=== PATIENT | female | born 1945 | race Caucasian/White ===

== ENCOUNTER → 2018-05-20 08:54 | Outpatient (CLI) | payer MEDICARE, SELFPAY ==
--- NOTE | 2018-05-20 09:13 | RAD_ITS ---
PROCEDURE: Fluoroscopic guided Hip Injection DATE: May 20, 2018. INDICATION: Female, 73 years old. Chronic left hip pain. PHYSICIAN: Ricardo Ware M.D. MEDICATIONS: 6 mg of betamethasone and 3 cc of 1% lidocaine. 2% lidocaine administered subcutaneously for local anesthesia. ACCESS SITE: Left hip. NEEDLE: 22-gauge spinal needle. FLUOROSCOPY TIME (if supplied): (28 seconds) minutes/seconds. Single image was obtained. FINDINGS: The risks, benefits, and alternatives to the procedure were explained to the patient. The specific risks of bleeding, infection, and neurovascular injury were detailed and accepted. Witnessed informed consent was obtained. A 22-gauge spinal needle was positioned under radiographic fluoroscopic localization. Approximately 2 cc of Isovue-300 instilled for localization purposes. Medication was then injected. The patient tolerated the procedure well without any immediate complications. The patient was placed supine with head elevated and returned to the floor in stable condition. RAD/Inj/Asp Yuniel Jt Should/Hip/Knee IMPRESSION: 1. Successful fluoroscopic guided hip injection. Electronically Signed: Ricardo Ware MD at 10:20 EDT Tel [phone], Service support ,
== END ==
PROVIDERS: Family Provider Family Medicine; PCP Family Medicine; Referring Provider Specialist; Visit Provider Specialist
DX: M16.12 Unilateral primary osteoarthritis, left hip (principal)
CPT/HCPCS: 20610; 77002; Q9965; J0702

== ENCOUNTER 2020-08-01 11:11 | Day surgery (SDC) | payer MEDICARE, SELFPAY ==
[2020-07-06 15:54] VITALS: BMI 31.0
--- NOTE | 2020-08-01 09:56 | PCM.HP.BLA ---
History and Physical Date of Admission: 08/01/20 HISTORY OF PRESENT ILLNESS Patient is a 75 year old female who presents for evaluation of a soft tissue mass of her left lower lip. She first noticed it in March. She denies any trauma to the area. She states that she now accidently bites it and then it will start hurting. She denies infection. She presents today for further evaluation and treatment. PAST MEDICAL HISTORY Mass of lip Frequent headaches GERD (gastroesophageal reflux disease) Heart murmur High cholesterol High triglycerides Cataract PAST SURGICAL HISTORY cataract surgery right knee surgery ALLERGIES codeine tramadol MEDICATIONS Fenofibrate [Tricor] Metoclopramide [Reglan] Omeprazole [Prilosec] Sumatriptan Succinate calcium carbonate-vitamin D3 cyanocobalamin (vitamin B-12) meloxicam ropinirole FAMILY HISTORY Other - Breast cancer, Heart disease, Hypertension, Kidney disease, Liver disease SOCIAL HISTORY Smoking Status: Former smoker alcohol intake: current substance use type: does not use REVIEW OF SYSTEMS General - Denies fever, fatigue, and weight loss. She is a former smoker, she quit when her children where born. Eyes - Denies glaucoma. She has a history of cataracts. ENT - Denies nasal congestion and sore throat. She has a soft tissue mass on her left lower lip that she first noticed in March. She states that she accidentally bites it and it is bothersome. Endocrine - Denies excessive thirst and urination. Skin - Denies suspicious lesions and skin cancer. Denies any personal or family history of skin cancer. Musculoskeletal - Complains of joint pain, joint stiffness. She denies weakness of muscles and joints, back pain, and arthritis. She had her right knee replaced recently and has injections placed in left knee. Neuro - Complains of migraines and headaches, she takes Sumatriptan for these. Cardiovascular - Denies fatigue, and shortness of breath with exertion. She sees a country printer apprentice next week for stress test and ultrasound because she sometimes has episodes of chest discomfort. History of high cholesterol and triglycerides. Psych - Denies anxiety and depression. Respiratory - Denies chronic cough and shortness of breath. Patient is a former smoker. Gastrointestinal - Denies nausea, vomiting, diarrhea, and constipation. History of GERD. Hematologic - Denies abnormal bruising and bleeding. Genitourinary - Denies hematuria but complains of urinary frequency. PHYSICAL EXAMINATION General - Alert and oriented. HEENT - PERRL. EOMI. Throat is clear. On the left lower lip near the midline is a soft tissue mass. It measures 4 mm. It is 2 cm from the left commissure. The length of the lower lip is 6.5 cm. Neck - Supple and non-tender. No cervical adenopathy. No suspicious lesions noted. Lungs- Clear to auscultation. Heart - Regular rate and rhythm. Abdomen - Soft and non distended. Extremities - FROM. No axillary adenopathy. Radial pulses are palpable. No suspicious lesions noted. Neuro - CN II-XII grossly intact. Psych - Normal mood and affect. ASSESSMENT 1. 4 mm soft tissue mass of left lower lip. 2. Former smoker. PLAN Recommend excision of this soft tissue mass left lower lip and send it to Pathology for analysis to rule out carcinoma. Reconstruction will be with lip flaps. If carcinoma is present, then further excision would be done with lip flaps reconstruction. Patient was informed of the risks and complications of the procedure including alternatives to surgery. These were discussed with the patient personally. Patient voices understanding and wishes to proceed. Some of the risks and complications were included in a form from the [employer]. Surgery will be done under local anesthesia and IV sedation on an outpatient basis. We discussed the current risks associated with COVID-19. While it is understood that there is a community spread of COVID-19, the risk of maureen COVID-19 while at [facility] ([facility]) is very low; however, the risk cannot be completely mitigated because of the community spread of the disease. We discussed in detail the risk of exposure to and/or potential harm posed by the COVID-19 virus with having a surgery/procedure at this time versus the risk of delaying the surgery/procedure. It is not possible to know either the risk of delaying the surgery or procedure or chance of getting an infection with perfect accuracy, but a joint decision was made to proceed at this time with the scheduled surgery/procedure as indicated on the consent form. Patient was notified that we will need to comply with any screening or testing [facility] wishes to perform or that surgery may be delayed for any positive results. Discussed with the patient that I was tested for COVID-19 on 02/25/20 which was negative and on 03/10/20 which was negative and on 03/24/20 which was negative and on 04/07/20 which was negative and on 04/21/20 which was negative and on 05/12/20 which was negative and on 06/02/20 which was negative and on 07/07/20 which was negative and on 07/28/20 which was negative. My testing regimen at this time is to be COVID-19 tested every 2 weeks or so. Procedure Criteria Procedure Type: Elective COVID Risk Discussion: The surgeon/proceduralist and patient have discussed in detail the risk of exposure to and/or potential harm posed by the COVID-19 virus with having a surgery/procedure at this time versus the risk of delaying the surgery/procedure. It is not possible to know either the risk of delaying the surgery or procedure or chance of getting an infection with perfect accuracy, but a joint decision was made between the patient and the surgeon/proceduralist to proceed at this time with the scheduled surgery/procedure as indicated on the consent form.
[2020-08-01 11:50] VITALS: BP 147/83; PULSE 57; RESP 16; TEMP 36.9; O2SAT 95; BMI 30.5
[2020-08-01] MEDS: Lactated Ringers 1,000 ML 100 ML IV (11:55)
[2020-08-01] MEDS: Lidocaine 1% /Epi 1:100 (20ml) 20 ML Vial (13:20)
[2020-08-01] MEDS: Mupirocin Ointment 22gm Tube 1 APPLIC (13:35)
--- NOTE | 2020-08-01 14:04 | PCM.OPRPT ---
Report of Operation Date of Procedure: 08/01/20 Pre-Operative Diagnosis: 1. 4 mm soft tissue mass of left lower lip. 2. Former smoker. Post-Operative Diagnosis: Same. Surgery/Procedure Performed:: Excision 4 mm soft tissue mass of left lower lip with medial and lateral lip advancement flaps reconstruction. Description of Surgical Findings:: Patient is a 75 year old female who presents for evaluation of a soft tissue mass of her left lower lip. She first noticed it in March. She denies any trauma to the area. She states that she now accidently bites it and then it will start hurting. She denies infection. Patient was informed of the risks and complications of the procedure including alternatives to surgery. These were discussed with the patient personally. Patient voices understanding and wishes to proceed. Some of the risks and complications were included in a form from the [employer]. 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 Drains: None. Estimated Blood Loss (mL): 10 ml. Description of Procedure: Patient was taken to OR in supine position and was placed under general anesthesia. The lips and lower face were prepped and draped in the usual fashion. SCD's were placed for DVT prophylaxis. Perioperative antibiotics were given intravenously. For the procedure, I wore an N95 mask and wore proper eyewear protection. Using xylocaine with epinephrine, an intraoral mental nerve block was infiltrated for postoperative pain relief. 5-0 Monocryl sutures were placed on the lower lip as traction sutures. I made an incision around the soft tissue mass. The mass was adherent to the underlying muscle which was excised. A suture was marked at the 12 oclock position for pathology orientation. The mass was sent to Pathology for analysis to rule out carcinoma. The mass clinically looked benign. The size of the defect was 1 x 1 cm. I designed medial and lateral lip flaps at the level of the naomy border and the dry lip with the wet mucosa. Incisions were made and the lip flaps were elevated into the underlying muscle. The size of the medial and lateral lip flaps were 1 x 1 cm each. The medial and lateral lip flaps were easily advanced into the defect with minimal tension and minimal distortion. Hemostasis was obtained with electrocautery. The lip flaps were then approximated in a multiple layered fashion by first approximating the muscle with 5-0 Monocryl figure of eight interrupted sutures. The naomy was approximated with 4-0 Chromic simple interrupted sutures. The intraoral wet mucosa was approximated with 4-0 Chromic simple interrupted sutures. For the naomy border, I used 5-0 Monocryl interrupted sutures for the deep dermis and subcutaneous tissue. The skin was approximated to the naomy with 6-0 Prolene simple interrupted sutures. Good lip contour was noted. No vascular compromise was noted on the lip flaps. Antibiotic ointment was applied to the suture lines. The size of the defect and the size of the lip flaps needed to close the defect was 3 cm2. Patient tolerated the procedure well and was sent to PACU in satisfactory condition. Patient will be sent home on antibiotics and pain medication. She will also use mouthwash after eating. Patient will followup in a week for a wound check and for discussion of the pathology report and for removal of the sutures. Grafts/Implants Used: None. - Complications None. - Admit VTE Documentation VTE Present on Admission: No VTE Mechan Device Prophylaxis: SCD's VTE Pharm Prophylaxis ordered?: No Surgery Charges CPT - 92102 ICD-10 - K13.0, Z87.891 39680 K13.0, Z87.891
[2020-08-01 14:15] VITALS: BP 147/77; BP 147/83; PULSE 64; RESP 16; TEMP 36.1; O2SAT 93
--- NOTE | 2020-08-01 14:16 | PCM.DC ---
You will use the following diet at home:: No restrictions Discharge Activity: May not drive while taking narcotic pain medications., May Shower - in two days., - - keep head elevated. no heavy lifting. May shower in (days): 2 May resume sexual activity in: No Restrictions Ice area for (Minutes): 5 - as needed for facial swelling. Weight Bearing Status: Weight bearing as tolerated Lifting Restrictions: 10 lbs. Keep extremity elevated above heart level: - - elevate head. Call your doctor if your incision/area has: Continuous Slow Oozing, Sudden Increased Bleeding, Increased Pain/ Swelling, Increased Redness, Foul Smelling Discharge, Swelling at the incision site Call your doctor if you observe: Fever of 101 or Higher, Coldness, Increased Pain, Shortness of breath, Chest pain, Calf discomfort, Uncontrolled pain Suture Line Care: - - apply antibiotic ointment to suture line daily. Cleanse incision/area with: - - may get incisions wet in the shower in two days. Additional Dressing/Incision Instructions:: Use mouthwash after eating. Allergies/Adverse Reactions: Allergies codeine Adverse Reaction (Verified 08/01/20 11:47) Vomiting tramadol Adverse Reaction (Verified 08/01/20 11:47) severe stomach cramps Medications to take at Discharge Fenofibrate [Tricor] 145 mg PO DAILY 10/05/15 Metoclopramide [Reglan] 5 mg PO .4 TIMES DAILY 10/05/15 Omeprazole [Prilosec] 40 mg PO DAILY 10/05/15 Sumatriptan Succinate 50 mg PO PRN PRN 10/05/15 calcium carbonate 600 mg (1,500 mg)-vitamin D3 400 unit tablet 1 tab PO BID 06/28/20 cyanocobalamin (vitamin B-12) 2,500 mcg sublingual tablet 2,500 mcg SUBLINGUAL DAILY 06/28/20 meloxicam 15 mg tablet 15 mg PO DAILY 06/28/20 ropinirole 1 mg tablet 1 mg PO QHS 06/28/20 Metoprolol Tartrate [Lopressor (beta jaime)] 25 mg PO BID 07/25/20 Clindamycin HCl [Cleocin] 300 mg PO TID #12 cap 08/01/20 Lactobacillus Acidophilus/Fos [Acidophilus Probiotic Tablet] 1 ea PO BID #20 tab 08/01/20 Oxycodone HCl/Acetaminophen [Percocet 5/325] 1 tablet PO Q4H PRN PRN 5 Days #20 tablet 08/01/20 The following prescriptions were given: Lactobacillus Acidophilus/Fos [Acidophilus Probiotic Tablet] 1 ea PO BID #20 tab Transmission Status: Pending to [facility] Clindamycin HCl [Cleocin] 300 mg PO TID #12 cap Transmission Status: Pending to [facility] Oxycodone HCl/Acetaminophen [Percocet 5/325] 1 tablet PO Q4H PRN PRN 5 Days #20 tablet PRN Reason: Pain Score 6-10 Transmission Status: Sent to [facility] Primary Care Physician: Lucius Aly DO [Primary Care Provider] - Test Results: Test results from this visit will be discussed in further detail at your follow-up appointment, if applicable. Please Follow Up With: Michael Gray MD When: one week. call [phone] for appt. Proposed Discharge Date: 08/01/20
[2020-08-01 14:30] VITALS: BP 137/70; BP 147/83; PULSE 59; RESP 16; O2SAT 94
[2020-08-01 14:45] VITALS: BP 139/74; BP 147/83; PULSE 54; RESP 16; TEMP 36.2; O2SAT 97
[2020-08-01 15:41] VITALS: BP 147/83; BP 149/88; PULSE 66; RESP 16; TEMP 36.2; O2SAT 93
--- NOTE | 2020-08-01 15:55 | LES_PTH ---
PATIENT: MILLER FELIX LOC: [facility] – [place] U#:[id number] AGE/SX: 75/F ROOM: RE08/01/[address]: Dr. Michael Gray MD : 1945 BED: DIS: 08/01/2020 SPEC #: [id number] RECD: 08/01/20 15:55 STATUS: JB REQ #: [id number] RENEE: 08/01/20 15:[address]: Michael Gray DEPT: SURGICAL PATHOLOGY RECD BY: April Luz ENTERED: 08/02/20 08:10 SP TYPE: Lesion OTHR DR: Dr. Lucius Aly, DO Tissues: Skin of lip, NOS Procedures: Surgery Specimen Level III HEADER OPERATION: Excision soft tissue mass lower lip; lip flap reconstruction PRE-OP DIAGNOSIS: 4 mm soft tissue mass left lower lip TISSUE SUBMITTED: Soft tissue mass left lower lip, suture at 12 o'clock MICROSCOPIC DIAGNOSIS Soft tissue mass of left lower lip: Epidermal inclusion cyst. AM:beverly 08/03/20 MICROSCOPIC DESCRIPTION Slides are reviewed. GROSS DESCRIPTION Received in fixative is one container labeled with the patient's name and designated soft tissue mass left lower lip, suture at 12 o'clock. The specimen consists of one heck fragment of skin that measures 0.7 x 0.7 x 0.2 cm. A suture is present at one edge. This edge is inked in black ink. The remainder of the specimen is inked in yellow ink. The specimen is bisected and totally submitted in one cassette. / AM:beverly 08/02/20 TC:5 CPT: 31516
== END 2020-08-01 15:52 | disposition home or self-care (01) ==
LOC: SDC 11:12 → AC 11:28
PROVIDERS: PCP Family Medicine; Referring Provider Surgery; Visit Provider Surgery
PROC: (CPT 40525; principal; 2020-08-01 12:45)
DX: L72.0 Epidermal cyst (principal); I10 Essential (primary) hypertension; R01.1 Cardiac murmur, unspecified; E78.00 Pure hypercholesterolemia, unspecified; M79.7 Fibromyalgia; K21.9 Gastro-esophageal reflux disease without esophagitis; G25.81 Restless legs syndrome; Z79.1 Long term (current) use of non-steroidal anti-inflammatories (NSAID); Z79.899 Other long term (current) drug therapy; Z87.891 Personal history of nicotine dependence; Z20.828 Contact with and (suspected) exposure to other viral communicable diseases
CPT/HCPCS: 40525; 87426; 88304; 88305; C9803; J7120; J2405

== ENCOUNTER 2025-08-09 08:27 | Day surgery (SDC) | payer MEDICARE, SELFPAY ==
--- NOTE | 2025-08-06 15:44 | PAT.ANE_ITS ---
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 When Was Last Pacemaker Check QUESTION #4 FULL TEXT: You/Your Family Experience fever (hyperthermia) with Anesthesia Last Oral Intake Last Oral intake: Last Oral Intake NPO since Meds taken in AM with sips of water? Meds patient instructed to take am of surgery PONV PONV - boulevard glassware replacer: PONV - boulevard glassware replacer Female Yes 08/04/25 14:18 HX of Motion Sickness No 08/04/25 14:18 HX of N/V After Surgery No 08/04/25 14:18 Non-Smoker Yes 08/04/25 14:18 Duration of Surgery greater No 08/04/25 14:18 than 60 minutes Number of Risk Factors 2 08/04/25 14:18 PONV Score Moderate Risk 08/04/25 14:18 Respiratory Assessment Respiratory Assessment - boulevard glassware replacer: Respiratory Tract Infection Hx - boulevard glassware replacer Hx Respiratory Tract Infection No 08/04/25 14:18 STOP Sleep Apnea STOP Sleep Apnea - boulevard glassware replacer: STOP Sleep Apnea - boulevard glassware replacer Hx Hypertension Yes: CONTROLLED WITH MED 08/04/25 14:18 Hx Sleep Apnea No 08/04/25 14:18 CPAP BIPAP Do you snore loudly (louder No 08/04/25 14:18 than talking or can be heard Do you often feel tired/ No 08/04/25 14:18 fatigued/ sleepy during daytime? Has anyone observed you stop No 08/04/25 14:18 breathing during sleep? STOP Results Negative 08/04/25 14:18 QUESTION #5 FULL TEXT : Do you snore loudly (louder than talking or can be heard through closed doors)? 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: Tobacco Use History - boulevard glassware replacer Tobacco Use Smoking Status Former smoker 08/04/25 14:18 Hx Tobacco Use No 08/04/25 14:18 Years Smoking Packs Smoked per Day Smoking Cessation Date was No - quit smoking greater 08/04/25 14:18 within the last 15 years than 15 years ago Hx Smoking Cessation Date 08/26/69 08/04/25 14:18 Hx Smoking Cessation Counseling Hematologic Medial History Hematologic Hx - boulevard glassware replacer: Hematologic Medical Hx - rn documentation Hx of Blood Transfusion No 08/04/25 14:18 Hx of Transfusion in last 3 No 08/04/25 14:18 Months Date of Last Transfusion (if within last 3 months) Ever experience any problems No 08/04/25 14:18 with transfusion(s)? Specify any problems Hx of Preganancy in last 3 N/A 08/04/25 14:18 Months Nurse Filling Out Transfusion NBUCHER 08/04/25 14:18 & Questions: Date: 08/04/25 08/04/25 14:18 Time: 14:21 08/04/25 14:18 Patient unable to answer at this time (ie. confused, unrespo /Reproduction History /Reproductive History - boulevard glassware replacer: /Reproductive Hx- boulevard glassware replacer Hx Now No 08/04/25 14:18 Gestational Age (in weeks): EDC: Hx Hx Para Hx Section SAB No 08/04/25 14:18 Does the father of the baby or his family experience fever w Father of the baby Malignant Hypertension history comment [facility] Medical History (Updated 08/04/25 @ 14:27 by Deanna Chaudhari) Wears glasses Wears dentures Post-menopausal Arthritis Restless legs Migraine headache History of echocardiogram History of stress test Cardiology follow-up encounter Epidermal inclusion cyst Mass of lip Vision problems GERD (gastroesophageal reflux disease) Heart murmur High triglycerides High cholesterol Frequent headaches Cataract Home Medications ?Medication ?Instructions ?Recorded ?Last Taken ?Type metoclopramide HCl 10 mg tablet 5 mg PO Q6H PRN nausea and vomiting 10/05/15 04/19/16 11:00 History 5 MG omeprazole 40 mg capsule,delayed 40 mg PO DAILY 08/01/20 History release calcium 600 mg (as 1 tab PO BID 06/28/20 Unknow n History carbonate)-vitamin D3 10 mcg (400 unit) tablet cyanocobalamin (vitamin B-12) 2,500 mcg sublingual ROSEY LY 06/28/20 Unknown History 2,500 mcg sublingual tablet (Vitamin B-12) metoprolol tartrate 25 mg tablet 25 mg PO BID 07/25/20 08/01/20 History Lactobacillus acidophilus 500 1 ea PO BID #20 tabs 03/14 Unknown Rx million cell-fructooligosac 50 mg tablet acetaminophen 500 mg tablet 500 mg PO Q6H PRN pain 06/19 Unknown History (Acetaminophen Extra Strength) alendronate 70 mg tablet 70 mg PO QWEEK 08/04/25 Unkn own History gabapentin 300 mg capsule 300 mg PO TID 08/04/25 Unkno wn History niacin 500 mg tablet,extended 500 mg PO BID 08/04/25 U nknown History release (Endur-Acin) omega 6-ouo-egw-fish oil 1,200 mg 1,200 cap PO DAILY 1 10/05/24 Unknown History (144 mg-216 mg) capsule (Fish Oil) pravastatin 20 mg tablet 20 mg PO DAILY 08/04/25 Unkn own History rimegepant 75 mg disintegrating 75 mg PO DAILY PRN zoila brennen 08/04/25 Unknown History tablet (Nurtec ODT) headache Allergy/AdvReac Type Severity Reaction Status Date / Time codeine AdvReac Vomiting Verified 08/04/25 14:12 tramadol AdvReac severe Verified 08/04/25 14:12 stomach cramps Family History Other Breast cancer Heart disease Hypertension Kidney disease Liver disease Surgical History Status post insertion of spinal cord stimulator History of repair of left hip joint History of excision of mass History of cataract surgery History of right knee surgery Social History (Updated 09/01/20 @ 13:16 by Kemi Cárdenas NETWORK COORDINATOR, NETWORK COORDINATOR-C) Smoking Status: Former smoker alcohol intake: current substance use type: does not use additional social history: DOES TAKE ASPIRIN DOES TAKE TYLENOL NEEDED DOES NOT TAKE IBUPROFEN Audit: Pertinent Findings Pertinent Findings EKG Perinent findings: 01/06/2024. Sinus rhythm. Probable LVH. Echo (EF%) pertinent findings: 08/03/2024. EF 50 to 60%. Pulmonary pressure 32. Consult pertinent findings: Cardiology note 07/26/2025. Silver Mitchell. LVH. Stable. Continue current medications. Mitral valve prolapse. Trivial MR. No test ordered. Recommendation Anesthesia Recommendation Anesthesia recommendation: OPTIMIZED for anesthesia
[2025-08-09] VITALS (8 sets, daily range): BP systolic 120–133; BP diastolic 73–95; PULSE 54–62; RESP 16; TEMP 36.2–36.4; O2SAT 95–100; BMI 30.2
[2025-08-09] MEDS: Lactated Ringers 1,000 ML 15 ML IV (08:54)
--- NOTE | 2025-08-09 09:14 | PCM.PRE.AN2 ---
ASA Classification* ASA Classification ASA Classification: 3 Assessment & Plan Anesthesia* Anesthesia Assessment Anesthesia Assessment: Discussed sedation and/or anesthesia options, risks, benefits, and alternatives with patient/parents/legal guardian/POA. Questions invited. The patient/parents/legal guardian/POA seems to understand and agrees to proceed with anesthesia plan. Reviewed the physical assessment, medical history, allergy history and patient home medications list prior to surgery/procedure/anesthetic and documented any changes. Performed airway and anesthesia risk assessments. Anesthesia Type Anesthesia Type: MAC History Source History Obtained from:: Patient and Chart Anesthesia Focused Assessment* Temperature: 97.6 F Pulse Rate: 62 Blood Pressure: 133/81 Respiratory Rate: 16 Pulse Ox: 100 Oxygen Delivery Method: Room Air Airway Assessment Mouth opens: >3 cm Mallampati Score: IV Teeth Condition: Dentures (Patient has full upper dentures. They will come out.) and Lower (Patient has 1 missing right lower tooth. Rest of the teeth are tight.) Neck Range of motion (ROM): Limited ROM (Slight Decrease) Labs Anesthesia Preop lab: CBC CHEMISTRY COAG Pre-Assessment Diagnosis/Proposed Procedure Planned Operative Procedure(s): (B) Block, Thoracic Epidural MEDIAL BRANCH BLOCK T7 T8 T9 UNDER FLUOROSCOPY Anesthesia History Anesthesia History - production tester: Anesthesia History - production tester Hx Hospitalization No 08/04/25 14:18 Any Problems With Anesthesia No 08/04/25 14:18 Cholinesterase deficiency No 08/04/25 14:18 You/Your Family Experience No 08/04/25 14:18 fever (hyperthermia) with Relationship Recent Exposure to Contagious No 08/09/25 08:55 Disease Does patient have nerve Yes: INSTRUCTIONS GIVEN 08/04/25 14:18 stimulator Patient instructed to have device shut off --Does patient have Pacemaker No 08/09/25 08:55 or ICD? When Was Last Pacemaker Check QUESTION #4 FULL TEXT: You/Your Family Experience fever (hyperthermia) with Anesthesia Last Oral Intake Last Oral intake: Last Oral Intake NPO since 22:30 08/09/25 08:55 Meds taken in AM with sips of Yes 08/09/25 08:55 water? Meds patient instructed to TYLENOL, METOPROLOL, 08/09/25 08:55 take am of surgery OMEPRAZOLE, GABAPENTIN Any additional information?: Yes Meds taken in AM with sips of water?: Yes PONV PONV - production tester: PONV - production tester Female Yes 08/04/25 14:18 HX of Motion Sickness No 08/04/25 14:18 HX of N/V After Surgery No 08/04/25 14:18 Non-Smoker Yes 08/04/25 14:18 Duration of Surgery greater No 08/04/25 14:18 than 60 minutes Number of Risk Factors 2 08/04/25 14:18 PONV Score Moderate Risk 08/04/25 14:18 Height & Weight Height & Weight: Anesthesia: Height & Weight Height 5 ft 4 in 08/09/25 08:55 Weight: 80 kg 08/09/25 08:55 Body Mass Index (BMI) 30.2 08/09/25 08:55 Respiratory Assessment Respiratory Assessment - production tester: Respiratory Tract Infection Hx - production tester Hx Respiratory Tract Infection No 08/04/25 14:18 STOP Sleep Apnea STOP Sleep Apnea - production tester: STOP Sleep Apnea - production tester Hx Hypertension Yes: CONTROLLED WITH MED 08/04/25 14:18 Hx Sleep Apnea No 08/04/25 14:18 CPAP BIPAP Do you snore loudly (louder No 08/04/25 14:18 than talking or can be heard Do you often feel tired/ No 08/04/25 14:18 fatigued/ sleepy during daytime? Has anyone observed you stop No 08/04/25 14:18 breathing during sleep? STOP Results Negative 08/04/25 14:18 QUESTION #5 FULL TEXT : Do you snore loudly (louder than talking or can be heard through closed doors)? 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 Specify any problems Hx of Preganancy in last 3 N/A 08/04/25 14:18 Months Nurse Filling Out Transfusion NBUCHER 08/04/25 14:18 & Questions: Date: 08/04/25 08/04/25 14:18 Time: 14:21 08/04/25 14:18 Patient unable to answer at this time (ie. confused, unrespo /Reproduction History /Reproductive History - production tester: /Reproductive Hx- production tester Hx Now No 08/04/25 14:18 Gestational Age (in weeks): EDC: Hx Hx Para Hx Section SAB No 08/04/25 14:18 Does the father of the baby or his family experience fever w Father of the baby Malignant Hypertension history comment Active Medications Active Medications: Current Medications Generic Name Dose Route Start Last Admin Trade Name Freq PRN Reason Stop Dose Admin Lactated Ringer's 1,000 mls @ 15 mls/hr 08/09/25 08:45 08/09/25 08:54 IV 15 mls/hr .Q48H DANIELA Administration PFSH Medical History Wears glasses Wears dentures Post-menopausal Arthritis Restless legs Migraine headache History of echocardiogram History of stress test Cardiology follow-up encounter Epidermal inclusion cyst Mass of lip Vision problems GERD (gastroesophageal reflux disease) Heart murmur High triglycerides High cholesterol Frequent headaches Cataract Home Medications ?Medication ?Instructions ?Recorded ?Last Taken ?Type metoclopramide HCl 10 mg tablet 5 mg PO Q6H PRN nausea and vomiting 10/05/15 04/19/16 11:00 History 5 MG omeprazole 40 mg capsule,delayed 40 mg PO DAILY 10/05/15 08/09/25 History release calcium 600 mg (as 1 tab PO BID 06/28/20 Unknown History carbonate)-vitamin D3 10 mcg (400 unit) tablet cyanocobalamin (vitamin B-12) 2,500 mcg sublingual DAILY 06/28/20 Unknown History 2,500 mcg sublingual tablet (Vitamin B-12) metoprolol tartrate 25 mg tablet 25 mg PO BID 07/25/20 08/09/25 History Lactobacillus acidophilus 500 1 ea PO BID #20 tabs 08/01/20 Unknown Rx million cell-fructooligosac 50 mg tablet acetaminophen 500 mg tablet 500 mg PO Q6H PRN pain 08/04/25 08/09/25 History (Acetaminophen Extra Strength) alendronate 70 mg tablet 70 mg PO QWEEK 08/04/25 Unknown History gabapentin 300 mg capsule 300 mg PO TID 08/04/25 08/09/25 History niacin 500 mg tablet,extended 500 mg PO BID 08/04/25 Unknown History release (Endur-Acin) omega 6-okt-mgy-fish oil 1,200 mg 1,200 cap PO DAILY 08/04/25 Unknown History (144 mg-216 mg) capsule (Fish Oil) pravastatin 20 mg tablet 20 mg PO DAILY 08/04/25 Unknown History rimegepant 75 mg disintegrating 75 mg PO DAILY PRN migraine 08/04/25 Unknown History tablet (Nurtec ODT) headache Allergy/AdvReac Type Severity Reaction Status Date / Time codeine AdvReac Vomiting Verified 08/09/25 08:51 tramadol AdvReac severe Verified 08/09/25 08:51 stomach cramps Family History Other Breast cancer Heart disease Hypertension Kidney disease Liver disease Surgical History Status post insertion of spinal cord stimulator History of repair of left hip joint History of excision of mass History of cataract surgery History of right knee surgery Social History Smoking Status: Former smoker alcohol intake: current substance use type: does not use additional social history: DOES TAKE ASPIRIN DOES TAKE TYLENOL NEEDED DOES NOT TAKE IBUPROFEN Review of Systems (Anesthesia) ROS Narrative System reviewed and no additional complaints, except as documented.
--- NOTE | 2025-08-09 09:30 | RAD_ITS ---
PROCEDURE: Intraoperative fluoroscopic services. 08/09/2025 REASON FOR EXAM: MEDIAL BRANCH BLOCK T7, T8, T9 TECHNIQUE: Procedure Code: RADSPT Modality: DX Procedure: THORACIC SPINE 3 VIEWS. Intraoperative fluoroscopic services provided for medial branch block of the T7-T8 and T9 level. Fluoro: 8.9 seconds. Radiation dose: 3.25 mGy. 6 images were submitted. COMPARISON: None FINDINGS: Intraoperative fluoroscopic services provided for medial branch block at the T7- T8 T9 levels. RAD/Thoracic Spine 3 Views IMPRESSION: Intraoperative fluoroscopic services provided for medial branch block at the T7 -T8 and T8-T9 levels. Reading Location: [facility]
[2025-08-09] MEDS: Lidocaine 1% (5 ml sdv) 5 ML Vial (09:46)
--- NOTE | 2025-08-09 09:56 | PCM.POST.ANE ---
Anesthesia: Postop Eval I Current Vital Signs Temperature: 97.5 F Pulse Rate: 56 Blood Pressure: 124/95 Respiratory Rate: 16 Pulse Ox: 96 Assessment Airway patent: Yes Spontaneous unlabored respirations: Yes nausea: No Vomiting: No Anesthesia Complication: No Fluid Hydration Crystalloid volume administer (ml): 400 Total IV fluid infused: 400 Progress Note Anesthesia document: Postop Eval 1 completed: Yes
--- NOTE | 2025-08-09 10:29 | OP.PCM_ITS ---
Operative Report (Standard) Operative Information Date of Procedure: 08/09/25 Pre-Operative Diagnosis: Thoracic spondylosis, thoracic degenerative disc disease, thoracic facet arthropathy Post-Operative Diagnosis: Thoracic spondylosis, thoracic degenerative disc disease, thoracic facet arthropathy Surgery/Procedure Performed: Bilateral lumbar medial branch block at T7-T8-T9 under fluoroscopic guidance valance cutter: No Type of Anesthesia: Local MAC RN Documented Start/Stop Times: Operation Date: 08/09/25 10:30 Case Time Into Pre-Op 08/09/25 08:34 Anesthesia Start 08/09/25 09:40 Into Room 08/09/25 09:40 Procedure Start 08/09/25 09:46 Procedure End 08/09/25 09:50 Anesthesia End 08/09/25 09:53 Out of Room 08/09/25 09:53 Into Recovery 08/09/25 09:55 Into Phase II Recovery 08/09/25 10:11 Out of Recovery 08/09/25 10:11 Procedure Start Time: 10:30 Procedure Stop Time: 10:30 Select all DRAINS/GRAFTS/IMPLANTS that apply: None Estimated Blood Loss: 1 Specimen collected: No Description of surgery: ANESTHESIA: MAC. BLOOD LOSS: Minimal. COMPLICATIONS: None. DESCRIPTION OF PROCEDURE: History and physical of today was reviewed. Risks and benefits of the procedure were explained. The patient understood and agreed to proceed. Informed consent was obtained. IV inserted per routine protocol. The patient was taken to the operating room and placed in the prone position with a pillow positioned underneath the chest. The mid back area was prepped and draped in a sterile fashion using iodine x3. Under fluoroscopy guidance on AP view, the T5 through T8 vertebral bodies were visualized. The skin and subcutaneous tissue was anesthetized with approximately 5 mL of 1% lidocaine using a 25-gauge regular needle. Under direct visualization on fluoroscopy, at approximately 15-degree angle, starting on the left T7 ending on the right T7 passing through the T8 and T9 bilaterally,, using a 22-gauge 3-1/2-inch spinal needle, the needle was passed through the skin. The tip of the needle was maneuvered and directed towards the epiphyseal junction of each corresponding vertebra. Once the tip of the needle was at the vicinity of the medial branch and in contact with the bone, the needle was pulled approximately 2 mm off the bone. After negative aspiration for blood or CSF and confirmation on AP as well as oblique view and lateral view, a total of 6 mL of preservative-free 0.25% Marcaine with 80 mg of Depo-Medrol was injected in divided doses between those four levels. The needles were then removed intact. The patient experienced no sign or symptoms of intrathecal or intravascular injection. The patient experienced no paresthesia. The procedure was completed without any apparent difficulty or any complications. The patient appeared to tolerate it well. ASSESSMENT AND PLAN: This is a 80-year-old female with thoracic spondylosis, thoracic degenerative di sc disease, thoracic facet arthropathy, status post bilateral thoracic medial branch block at T7-T9 under fluoroscopic guidance, patient will continue her current medications, patient will follow-up in approximately 2 weeks for reevaluation. Surgical Findings: 0 Complications Complications: No Admit VTE Documentation VTE Present on Admission: No VTE Mechan Device Prophylaxis: None VTE Pharm Prophylaxis ordered?: No
== END 2025-08-09 10:31 | disposition home or self-care (01) ==
LOC: SDC 08:32 → AC 08:34
PROVIDERS: PCP Family Medicine; Referring Provider Anesthesiology Pain Medicine; Visit Provider Anesthesiology Pain Medicine
PROC: 3E0S3BZ Introduction of Anesthetic Agent into Epidural Space, Percutaneous Approach (ICD-10-PCS; CPT 62322; principal; 2025-08-09 10:25)
DX: M47.814 Spondylosis without myelopathy or radiculopathy, thoracic region (principal); M51.34 Other intervertebral disc degeneration, thoracic region; M46.94 Unspecified inflammatory spondylopathy, thoracic region; I10 Essential (primary) hypertension; E78.00 Pure hypercholesterolemia, unspecified; Z79.899 Other long term (current) drug therapy; Z87.891 Personal history of nicotine dependence
CPT/HCPCS: 64491; 01992; 64490; 72072